=== PATIENT | male | born 1990 | race Caucasian/White ===

== ENCOUNTER 2021-11-18 14:06 | Emergency (ER) | payer OTHER ==
[~2021-11-18] VITALS: Ht 165.1 cm; Wt 65.8 kg
== END 2021-11-18 16:39 | disposition home or self-care (01) ==
LOC: ER 14:06
DX: K52.9 Noninfective gastroenteritis and colitis, unspecified (principal)

== ENCOUNTER 2022-03-12 08:56 | Emergency (ER) | payer OTHER ==
[~2022-03-12] VITALS: Ht 165.1 cm; Wt 68.0 kg
== END 2022-03-12 13:23 | disposition home or self-care (01) ==
LOC: ER 08:56
DX: R51.9 Headache, unspecified (principal); R53.81 Other malaise; R42 Dizziness and giddiness; R20.2 Paresthesia of skin; Z20.822 Contact with and (suspected) exposure to COVID-19

== ENCOUNTER → 2022-06-07 | Emergency (ER) | payer OTHER ==
[~2022-06-07] VITALS: Ht 165.1 cm; Wt 68.0 kg
== END | disposition left against medical advice (07) ==
LOC: ER 00:57
DX: Z53.21 Procedure and treatment not carried out due to patient leaving prior to being seen by health care provider (principal)

== ENCOUNTER 2022-09-13 11:45 | Emergency (ER) | payer OTHER ==
[~2022-09-13] VITALS: Ht 162.6 cm; Wt 70.3 kg
== END 2022-09-13 17:22 | disposition home or self-care (01) ==
LOC: ER 11:45
DX: R10.9 Unspecified abdominal pain (principal)

== ENCOUNTER 2022-09-16 09:45 | Emergency (ER) | payer OTHER ==
[~2022-09-16] VITALS: Ht 165.1 cm; Wt 70.3 kg
== END 2022-09-16 15:49 | disposition home or self-care (01) ==
LOC: ER 09:45
DX: R10.9 Unspecified abdominal pain (principal)

== ENCOUNTER 2022-10-06 11:50 | Emergency (ER) | payer OTHER ==
[~2022-10-06] VITALS: Ht 165.1 cm; Wt 70.3 kg
[2022-10-06] MEDS ORDERED: DICLOFENAC SODI75 MG PO (17:57)
== END 2022-10-06 18:04 | disposition home or self-care (01) ==
LOC: ER 11:50
DX: R10.84 Generalized abdominal pain (principal)

== ENCOUNTER 2023-07-04 11:24 | Emergency (ER) | payer OTHER ==
[~2023-07-04] VITALS: Ht 162.6 cm; Wt 70.3 kg
[~2023-07-04 11:24] MED LIST: DICLOFENAC SODI75 MG PO
[2023-07-04 13:04] LABS: PH,URINE 6.5 (5.0-8.0); URINE APPEARANCE Clear; URINE BILIRRUBIN Negative (NEGATIVE); URINE BLOOD Negative; URINE COLOR Yellow; URINE GLUCOSE Negative (NEGATIVE); URINE LEUKOCYTE Negative; URINE NITRATE Negative; URINE PROTEIN Negative (NEGATIVE); URINE UROBILINOGEN 0.2 E.U./dl
[2023-07-04 13:06] LABS: HEMATOCRIT 44.5 % (39.0-48.0); HEMOGLOBIN 15.2 g/dL (13-16.00); MEAN CELL VOLUME 84.3 fL (80.0-100.00); MEAN CORPUSCULAR HEMOGLOBIN 28.7 pg (27.00-32.0); MEAN CORPUSCULAR HGB CONC 34.1 g/dl (32.0-36.0); PLATELET COUNT 227 K/uL (150-450); RED BLOOD COUNT 5.28 M/uL (4.00-6.00); RED CELL DISTRIBUTION WIDTH 13.6 % (11.5-14.5)
[2023-07-04 13:09] LABS: URINE BACTERIA 1.2 uL (0.0-1933); URINE RBC 1.2 uL (0.0-20.8); URINE WBC 0.6 uL (0.0-23.2)
[2023-07-04 13:34] LABS: INR 1.04; PARTIAL THROMBOPLASTIN TIME 31.4 SECONDS (22.0-34.0); PROTHROMBIN TIME 10.9 SECONDS (9.0-11.5)
[2023-07-04 14:09] LABS: BILIRUBIN TOTAL 0.42 mg/dL (0.3-1.2); BILIRUBIN,CONJUGATED 0.1 mg/dL (0.0-0.2); BILIRUBIN,UNCONJUGATED 0.32 mg/dL (0.0-0.6); CALCIUM 9.5 mg/dL (8.5-10.1); CREATININE SERUM 1.16 mg/dL (0.70-1.30); GFR 73.92; POTASSIUM 3.65 mEq/L (3.5-5.1)
[2023-07-04] MEDS ORDERED: PEPCID AC20 MG PO (15:51)
[2023-07-04] MEDS ORDERED: INTESTINEX680 M1 PO (15:51)
[2023-07-04] MEDS ORDERED: ZOFRAN8 MG PO (15:51)
== END 2023-07-04 15:58 | disposition home or self-care (01) ==
LOC: ER 11:24
PROVIDERS: General Practice
DX: K29.00 Acute gastritis without bleeding (principal); E86.0 Dehydration; R11.2 Nausea with vomiting, unspecified